=== PATIENT | female | born 1945 | race Caucasian/White ===

== ENCOUNTER 2020-12-30 23:54 | Emergency (ER) | payer MEDICARE, BC ==
[~2020-12-30 23:54] MED LIST: traMADol 50 MG Tab ONE
[2020-12-31] MEDS ORDERED: fentaNYL 100 MCG/2 ML SDV IM PRN (00:05)
--- NOTE | 2020-12-31 00:40 | EDM.PDOC ---
ED HPI GENERAL MEDICAL PROBLEM - General Chief Complaint: Lower Extremity Injury/Pain Stated Complaint: LEFT HIP AND WRIST PAIN Time Seen by Provider: 12/31/20 00:05 Source of Information: Reports: Patient History Limitations: Reports: No Limitations - History of Present Illness INITIAL COMMENTS - FREE TEXT/NARRATIVE: patient presented to the ER with after a fall c/o left hip and left wrist pain. She reports that she tripped while coming out of the shower - no dizziness or CP. No palpitations. Denies head injury. No Chest wall injury. Reports it is hard for here to stand up and put weight on her left hip. no tingling or numbness. Came to the ER with the help of her and son. Onset: Sudden Duration: Minutes: (35) Location: Reports: Lower Extremity, Left Quality: Reports: Sharp Severity: Moderate Improves with: Reports: Immobilization Worsens with: Reports: Movement Left Hip Pain Score (Numeric/FACES): 2 - Related Data Allergies Allergy/AdvReac Type Severity Reaction Status Date / Time No Known Allergies Allergy Verified 12/31/20 00:16 Home Meds: Home Meds Escitalopram Oxalate [Lexapro] 5 mg PO DAILY 12/31/20 [History] Potassium Chloride 10 meq PO DAILY 12/31/20 [History] amLODIPine [Norvasc] 5 mg PO DAILY 12/31/20 [History] hydroCHLOROthiazide [Hydrochlorothiazide] 25 mg PO DAILY 12/31/20 [History] lisinopriL [Lisinopril] 40 mg PO DAILY 12/31/20 [History] Past Medical History Cardiovascular History: Reports: Hypertension Psychiatric History: Reports: Anxiety Social & Family History - Family History Family Medical History: No Pertinent Family History - Tobacco Use Tobacco Use Status *Q: Never Tobacco User - Caffeine Use Caffeine Use: Reports: Coffee - Recreational Drug Use Recreational Drug Use: No Review of Systems - Review of Systems Review Of Systems: See Below Constitutional: Reports: No Symptoms Respiratory: Reports: No Symptoms Cardiovascular: Reports: No Symptoms Musculoskeletal: Reports: Leg Pain Skin: Reports: No Symptoms Neurological: Reports: No Symptoms Psychiatric: Reports: No Symptoms ED EXAM, GENERAL - Physical Exam Exam: See Below Exam Limited By: No Limitations General Appearance: Alert, WD/WN Eye Exam: Bilateral Eye: EOMI, PERRL Head: Atraumatic Respiratory/Chest: No Respiratory Distress, Lungs Clear Cardiovascular: Normal Peripheral Pulses GI/Abdominal: Normal Bowel Sounds, Soft Extremities: Limited Range of Motion (LLE due to pain), Other (mild TTP left hip area) Neurological: Alert, Oriented Course - Vital Signs Last Recorded V/S: Last Vital Signs Temp 36.4 C 12/31/20 00:23 Pulse 76 12/31/20 00:23 Resp 18 12/31/20 00:23 BP 144/67 H 12/31/20 00:23 Pulse Ox 100 12/31/20 00:23 - Orders/Labs/Meds Orders: Active Orders 24 hr Category Date Time Status Hip Min 2V or 3V Lt [CR] Stat Exams 12/31/20 00:19 Taken Wrist Comp Min 3V Lt [CR] Stat Exams 12/31/20 00:19 Taken Meds: Medications Discontinued Medications Generic Name Dose Route Start Last Admin Trade Name Freq PRN Reason Stop Dose Admin Fentanyl 50 mcg 12/31/20 00:05 12/31/20 00:08 Fentanyl 100 Mcg/2 Ml Sdv IM 50 mcg Q5M PRN Administration Pain Ketorolac Tromethamine 30 mg 12/31/20 00:53 12/31/20 00:58 Ketorolac 60 Mg/2 Ml Sdv IM 12/31/20 00:54 30 mg ONETIME ONE Administration Lidocaine 700 mg 12/31/20 02:01 12/31/20 02:02 Lidocaine 5% 700 Mg Patch TRDERM 12/31/20 02:02 700 mg ONETIME ONE Administration - Re-Assessments/Exams Free Text/Narrative Re-Assessment/Exam: vitals WNL IM fentanyl 50 mcg was given xray left wrist - no e/o fracture xray left hip - no e/o fracture IM toradol for pain control as well as a lidocaine patch a walker was provided did well with a walker instructed to return to the ER if any concerns Departure - Departure Time of Disposition: 01:26 Disposition: Home, Self-Care 01 Condition: Good Clinical Impression: Contusion of hip - Discharge Information *PRESCRIPTION DRUG MONITORING PROGRAM REVIEWED*: Not Applicable *COPY OF PRESCRIPTION DRUG MONITORING REPORT IN PATIENT MANAV: Not Applicable Instructions: Hip Pain Forms: ED Department Discharge Additional Instructions: Discharge home. Tramadol 50mg 1 tablet every 6 hours as needed for pain. Use walker when ambulating. If pain does not improve, come back to the ER on Sunday or Sunday. Sepsis Event Note (ED) - Evaluation Sepsis Screening Result: No Definite Risk - Focused Exam Vital Signs: Vital Signs Temp Pulse Resp BP Pulse Ox 12/31/20 00:23 36.4 C 76 18 144/67 H 100 12/30/20 23:54 36.4 C 76 18 144/67 H 100 - Problem List & Annotations (1) Contusion of hip SNOMED Code(s): 16589228 Code(s): S70.00XA - CONTUSION OF UNSPECIFIED HIP, INITIAL ENCOUNTER Status: Acute Priority: Low - Problem List Review Problem List Initiated/Reviewed/Updated: Yes - My Orders Last 24 Hours: My Active Orders 12/31/20 00:19 Hip Min 2V or 3V Lt [CR] Stat Wrist Comp Min 3V Lt [CR] Stat - Assessment/Plan Last 24 Hours: My Active Orders 12/31/20 00:19 Hip Min 2V or 3V Lt [CR] Stat Wrist Comp Min 3V Lt [CR] Stat Plan: - pain control - a walker - return to the ER if any concerns
[2020-12-31] MEDS ORDERED: Ketorolac 60 MG/2 ML SDV IM ONE (00:53)
[2020-12-31] MEDS ORDERED: Lidocaine 5% 700 MG Patch TRDERM ONE (02:01)
--- NOTE | 2020-12-31 09:52 | CR ---
DATE OF SERVICE: 12/31/20 CLINICAL DATA: fall LEFT WRIST: No priors. There are mild osteoarthritic changes involving multiple joints. No acute abnormalities. No lytic or blastic bone lesions. [id number] [facility]
--- NOTE | 2020-12-31 09:55 | CR ---
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 No acute fracture or dislocation. No lytic or blastic bone lesions. There is a calcified mass within the pelvis consistent with a calcified uterine leiomyoma. [id number] [facility]
== END 2020-12-31 01:55 | disposition home or self-care (01) ==
LOC: LB.ED 23:54
DX: S70.02XA Contusion of left hip, initial encounter (principal); I10 Essential (primary) hypertension; Z79.899 Other long term (current) drug therapy; W01.0XXA Fall on same level from slipping, tripping and stumbling without subsequent striking against object, initial encounter
CPT/HCPCS: 73110; 73502; 96372; 99283; A9270; J1885; J3010